=== PATIENT | female | born 1985 | race African-American/Black ===

== ENCOUNTER 2016-08-21 16:44 | Emergency (ER) | payer OTHER ==
[~2016-08-21] VITALS: Ht 175.3 cm; Wt 81.5 kg
[2016-08-21 18:31] VITALS: BP 130/71
[2016-08-21] MEDS ORDERED: IBUPROFEN 800 MG TABLET PO ONE (18:45)
== END 2016-08-21 19:06 | disposition home or self-care (01) ==
LOC: EMS 16:48
DX: S90.31XA Contusion of right foot, initial encounter (principal); W23.0XXA Caught, crushed, jammed, or pinched between moving objects, initial encounter; Y93.89 Activity, other specified; Y92.89 Other specified places as the place of occurrence of the external cause; Y99.8 Other external cause status
CPT/HCPCS: 99284

== ENCOUNTER 2022-03-10 09:27 | Emergency (ER) | payer OTHER ==
[~2022-03-10] VITALS: Ht 167.6 cm; Wt 100.0 kg
[2022-03-10 10:01] VITALS: BP 124/84
== END 2022-03-10 10:58 | disposition left against medical advice (07) ==
LOC: EMS 09:27
DX: Z53.21 Procedure and treatment not carried out due to patient leaving prior to being seen by health care provider (principal)